=== PATIENT | female | born 1985 | race Two or more races ===

== ENCOUNTER 2022-08-07 23:23 | Inpatient (IN) | payer OTHER ==
[~2022-08-07] VITALS: Ht 162.6 cm; Wt 54.4 kg
--- NOTE | 2022-08-07 23:47 | NUR ---
PACIENTE ALERTA Y ORIENTADA X3. REFIERE VENIR POR DOLOR DE AMNA, DOLOR ABDOMINAL Y NAUSEAS DESDE HACE SHASHI MURCIA. FAMILIAR REFIERE LA PACIENTE VACA PRESENTADO VARIOS EPISODIOS DE ATAQUES EPILEPTICOS DESDE HACE SHASHI MURCIA.
--- NOTE | 2022-08-08 03:37 | NUR ---
PTE EVALUADO POR SE EJECUTA ORDEN MEDICA EN LYONS TOTALIDAD, SE REALIZAN MUESTRA BAJO MEDIDAS ASEPTICAS Y SE ORIENTA A PTE SOBRE TODAS LAS INTERVENCIONES Y PTE REFIERE ENTENDER.
--- NOTE | 2022-08-08 15:22 | NUR ---
PTE ALERTA Y ORIENTADA X 3 ESFERAS EN COMPANIA DE FAMILIAR,EN HONEY CON BARANDAS ELEVADAS.AREA DE VENOPUNCION PATENTE Y CASEY DE EDEMA CON FLUIDOS DE MANTENIMIENTO,PENDIENTE A EVALUACION DE DR OCONNELL.
== END 2022-08-10 17:30 | disposition home or self-care (01) | DRG 101 ==
LOC: ER 23:23 → SEC-K 08-08 19:29 → MEDJ 08-08 21:05
PROVIDERS: ADMIT Internal Medicine; ATTEND Internal Medicine
PROC: B020ZZZ Computerized Tomography (CT Scan) of Brain (ICD-10-PCS; principal; 2022-08-08)
PROC: B345ZZZ Ultrasonography of Bilateral Common Carotid Arteries (ICD-10-PCS; 2022-08-08)
PROC: B348ZZZ Ultrasonography of Bilateral Internal Carotid Arteries (ICD-10-PCS; 2022-08-08)
PROC: B030ZZZ Magnetic Resonance Imaging (MRI) of Brain (ICD-10-PCS; 2022-08-08)
DX: G40.89 Other seizures (principal); K29.60 Other gastritis without bleeding; R25.8 Other abnormal involuntary movements; R10.13 Epigastric pain; Z20.822 Contact with and (suspected) exposure to COVID-19
CPT/HCPCS: 70544